=== PATIENT | female | born 1960 | race Caucasian/White ===

== ENCOUNTER 2022-03-24 06:44 | Day surgery (SDC) | payer BC ==
[2022-03-23 14:06] LABS: Potassium 4.5 mmol/L (3.5-5.1)
[2022-03-24] MEDS ORDERED: Ringers Lactate 1,000 ML IV ONE (07:08)
[2022-03-24] MEDS ORDERED: propofoL 200 MG/20 ML VIAL IV ONE (07:48)
[2022-03-24] MEDS ORDERED: LIDOCAINE 1% MPF 5 ML VIAL ONE (07:48)
[2022-03-24 08:49] VITALS: O2SAT 100
[2022-03-24 09:27] VITALS: BP 100/66; TEMP 97.6
--- NOTE | 2022-03-24 16:03 | EKG ---
Test Date: 2022-03-23 Test Time: 13:33:22 [employer] Sales Coordinator: LUCRECIA MEASUREMENT RESULTS: Intervals: Rate: 65 SD: 158 QRSD: 78 QT: 380 QTc: 395 [place]: P: 44 SD: 158 QRS: -40 T: 78 INTERPRETIVE STATEMENTS: Sinus rhythm with premature supraventricular complexes Left axis deviation Low voltage QRS Cannot rule out Anterior infarct, age undetermined Abnormal ECG No previous ECG available for comparison Electronically Signed On 03-24-22 16:00:36 [employer] PERSON by Dale Wiseman
== END 2022-03-24 09:00 | disposition home or self-care (01) ==
LOC: OR 06:44
PROVIDERS: ATTEND Surgery
PROC: 0DBN8ZX Excision of Sigmoid Colon, Via Natural or Artificial Opening Endoscopic, Diagnostic (ICD-10-PCS; principal; 2022-03-24 08:00)
DX: Z12.11 Encounter for screening for malignant neoplasm of colon (principal); K57.30 Diverticulosis of large intestine without perforation or abscess without bleeding; K64.4 Residual hemorrhoidal skin tags
CPT/HCPCS: 93005; 80048; 36415; 88305; 45380; J2704; J2001; J7120